=== PATIENT | male | born 1965 | race Caucasian/White ===

== ENCOUNTER 2016-12-23 09:21 | Outpatient (CLI) | payer BC ==
[2016-12-23 10:25] LABS: ALT (SGPT) 43 U/L (0-55); AST (SGOT) 22 U/L (5-34); Albumin 4.4 g/dL (3.5-5.0); Alkaline Phosphatase 97 U/L (40-150); Anion Gap 11 mmol/L (10-20); BUN (Urea Nitrogen) 14 mg/dL (8.4-25.7); Bilirubin, Total 0.7 mg/dL (0.2-1.2); Calc. Creatinine Clearance 0 mL/min (70-130); Calcium 9.3 mg/dL (7.8-10.44); Carbon Dioxide 28 mmol/L (22-29); Cardiac Risk 5.1 (Less than 4.5); Chloride 106 mmol/L (98-107); Cholesterol 168 mg/dL (< 200 Desired); Estimated GFR-MDRD Greater than 90; Globulin 2.9 g/dL (2.4-3.5); Glucose 90 mg/dL (70-105); HDL Cholesterol 33 mg/dL (>60 Neg Risk); LDL Cholesterol, Calculated 106 mg/dL; Protein, Total 7.3 g/dL (6.0-8.3); Sodium 141 mmol/L (136-145); Triglycerides 143 mg/dL (Less than 150)
[2016-12-23 11:06] LABS: #Eosinphils 0.3 thou/uL (0.0-0.7); #Lymphocytes 2.2 thou/uL (1.20-3.40); #Monocytes 0.6 thou/uL (0.11-0.59); #Neutrophils 4.9 thou/uL (1.40-6.50); %Basophils 0.6 % (0.0-1.0); %Eosinophils 4.2 % (0.0-10.0); %Lymphocytes 26.9 % (21.0-51.0); %Monocytes 7.3 % (0.0-10.0); %Neutrophils 61.1 % (42.0-75.0); Hemoglobin 16.2 g/dL (14.0-18.0); Mean Corpuscular HGB CONC 34.7 g/dL (32.0-36.0); Mean Corpuscular Hemoglobin 32.2 pg (27.0-31.0); Mean Corpuscular Volume 92.8 fl (80.0-94.0); Mean Platelet Volume 7.8 fL (7.4-10.4); Platelet Count 234 thou/uL (130-400); RBC Distribution Width 11.9 % (11.5-14.5); Red Blood Cell (RBC) Count 5.05 mill/uL (4.70-6.10); White Blood Cell (WBC) Count 8.1 thou/uL (4.8-10.8)
== END 2016-12-23 09:22 | disposition home or self-care (01) ==
LOC: HPCALD 09:21
PROVIDERS: ATTEND Family Medicine
DX: Z13.6 Encounter for screening for cardiovascular disorders (principal); Z12.5 Encounter for screening for malignant neoplasm of prostate; I10 Essential (primary) hypertension
CPT/HCPCS: 36415; 80053; 80061; 85025; G0103

== ENCOUNTER 2018-01-31 09:57 | Outpatient (CLI) | payer BC ==
--- NOTE | 2018-01-31 18:37 | RAD ---
LUMBAR SPINE FIVE VIEWS: 01/31/2018 FINDINGS: Degenerative changes are present throughout the spine, consisting of osteophytes. Degenerative cole es in the facet joints are particularly evident at the L4 through S1 levels. Slight disk space narro wing may be present at L4-L5. A very minor anterolisthesis of L4 on L5 is present that may advance b y only 1 mm with flexion. The amount of movement is truly minimal. No fractures or areas of bony de struction are seen. The SI joints are symmetrical. IMPRESSION: Degenerative changes as noted. See above. POS: HOME
== END 2018-01-31 09:58 | disposition home or self-care (01) ==
LOC: BURRAD 09:57
PROVIDERS: ATTEND Specialist
DX: M51.16 Intervertebral disc disorders with radiculopathy, lumbar region (principal); M47.26 Other spondylosis with radiculopathy, lumbar region; M47.897 Other spondylosis, lumbosacral region; M43.16 Spondylolisthesis, lumbar region
CPT/HCPCS: 72120